=== PATIENT | male | born 1930 | race Hispanic/Latino ===

== ENCOUNTER → 2017-08-12 | Outpatient (CLI) | payer MEDICARE ==
[~2017-08-12] MED LIST: DIATR MEGLU/DIATRIZOATE SODIUM 30 ML BOTTLE PO ONE
== END | disposition home or self-care (01) ==
LOC: RAH 12:51
PROVIDERS: ATTEND Internal Medicine Gastroenterology
DX: K94.20 Gastrostomy complication, unspecified (principal)
CPT/HCPCS: 74018; Q9963